=== PATIENT | male | born 2005 | race Two or more races ===

== ENCOUNTER 2024-09-17 13:37 | Emergency (ER) | payer MEDICAID, OTHER ==
[~2024-09-17] VITALS: Ht 175.3 cm; Wt 72.7 kg
[2024-09-17] MEDS: MORPHINE SULFATE 4 MG/ML SYR/VIAL IV ONE (13:45)
[2024-09-17 13:55] VITALS: PULSE 89; RESP 16; O2SAT 95
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
[2024-09-17] MEDS: ONDANSETRON HCL 4 MG/2 ML VIAL IV ONE ×3 (14:10→15:51)
[2024-09-17 14:17] LABS: Basophils # (auto) 0.2 10 ^3/uL (0-0.2); Basophils % (auto) 0.9 % (0.0-2.0); Eosinophils # (auto) 0.1 10 ^3/uL (0-0.8); Eosinophils % (auto) 0.8 % (0.0-7.0); Hematocrit 45.8 % (41.0-53.0); Hemoglobin 15.8 g/dL (13.5-17.5); Lymphocytes # (auto) 2.5 10 ^3/uL (0.4-5.4); Lymphocytes % (auto) 14.8 % (10.0-50.0); Mean Corpuscular Hemoglobin 31.3 pg (28.0-32.0); Mean Corpuscular Hgb Conc. 34.5 g/dL (32.0-36.0); Mean Corpuscular Volume 90.6 fL (80.0-100.0); Monocytes # (auto) 0.9 10 ^3/uL (0-1.3); Monocytes % (auto) 5.5 % (0.0-12.0); Neutrophils # (auto) 13.2 10 ^3/uL (1.6-8.6); Nucleated Red Blood Cells % 0.1 %; Platelet Count (auto) 219 10^3/uL (140-450); Red Blood Cells 5.05 10^6/uL (4.5-5.90); Red Cell Distribution Width 13.3 % (11.8-14.3); White Blood Cell 16.9 10^3/uL (4.4-10.8)
[2024-09-17 14:33] LABS: Chloride 104 mmol/L (98-107); Potassium 3.8 mmol/L (3.5-5.1); Sodium 138 mmol/L (136-145)
[2024-09-17 14:34] LABS: Anion Gap 12 (5-15); Calcium 10.1 mg/dL (8.7-10.4); Carbon Dioxide 22 mmol/L (20-31)
--- NOTE | 2024-09-17 14:38 | DVH ---
EXAM: CT HEAD WITHOUT CONTRAST INDICATION: trauma loc TECHNIQUE: CT of the head without intravenous contrast. Radiation Dose : 1. Head: CT Dose: CTDI volume is 63 mGy. Dose-length product is 1144 mGy*cm The dose indicators for CT are the volume Computed Tomography (CT) Dose Index (CTDIvol) and the Dose Length Product (DLP), and are measured in units of mGy and mGy-cm, respectively. These indicators are not patient dose, but values generated from the CT scanner acquisition factors. The report includes radiation exposure data for exposures received during this examination. COMPARISON: None FINDINGS: There is no evidence of acute intracranial hemorrhage, extra-axial collection, mass effect, midline s hift, herniation or hydrocephalus. The ventricles, sulci and cisterns are age appropriate. The aragon-white differentiation is intact. Patchy periventricular and subcortical white matter hypoattenuation is nonspecific but may be related to small vessel ischemic disease. Moderate right-sided sphenoid sinusitis. The surrounding soft tissues and osseous structures are unremarkable. IMPRESSION: 1. No acute intracranial abnormality. Radiation optimization: All CT scans at this facility use at least one of these dose optimization aurea hniques: automated exposure control mA and/or kV adjustment per patient size (includes targeted exam s where dose is matched to clinical indication) or iterative reconstruction.
[2024-09-17 14:39] LABS: BUN/Creatinine Ratio 13.7 (10.0-20.0); Blood Urea Nitrogen 14 mg/dL (9-23)
[2024-09-17] MEDS: SODIUM CHLORIDE 0.9% 1,000 ML IV ONE (14:41)
[2024-09-17 14:46] LABS: Glucose 165 mg/dL (74-106)
--- NOTE | 2024-09-17 14:48 | DVH ---
HISTORY: trauma TECHNIQUE: Nonenhanced axial images through the facial bones with coronal and sagittal MPR. Radiation Dose Information: CT Dose: CTDI volume is 66.97 mGy. Dose-length product is 1380.37 mGy*cm COMPARISON: None FINDINGS: Mandible: Unremarkable Maxilla: Unremarkable Zygomatic arches: Unremarkable Nasal bone: Unremarkable Orbits: Unremarkable Sinuses: Partial opacification in the right sphenoid sinus which does not appear dense enough to cardozo ggest blood products. Otherwise mild scattered mucosal thickening in the paranasal sinuses. Facial swelling: Soft tissue swelling overlying the right zygomatic arch. No evidence of subcutaneou s gas or radiopaque foreign bodies. Other: Soft tissue density in the bilateral external auditory canals could represent cerumen impactio n or ear plugs. IMPRESSION: 1. No acute facial fractures. 2. Right facial soft tissue swelling. 3. Right sphenoid sinus disease. Correlate for possible sinusitis. Radiation optimization: All CT scans at this facility use at least one of these dose optimization aurea hniques: automated exposure control mA and/or kV adjustment per patient size (includes targeted exam s where dose is matched to clinical indication) or iterative reconstruction.
--- NOTE | 2024-09-17 14:48 | DVH ---
EXAM: CT CERVICAL WITHOUT CONTRAST INDICATION: trauma EXAM DATE: 09/17/2024 02:11 PM COMPARISON: None TECHNIQUE: Multiple axial CT images of the cervical spine were obtained using bone algorithm. Axial a nd coronal reformatting was done. Bone and soft tissue windows were reviewed. Radiation Dose Information: CT Dose: CTDI volume is 24.61 mGy. Dose-length product is 688.69 mGy*cm Findings: There is no evidence of an acute fracture or spondylolisthesis. The vertebral body heights are well-m aintained. The craniocervical junction and dens are intact. No evidence of degenerative disc disease. No neuroforaminal narrowing. No spinal canal stenosis. There is a normal cervical lordosis. The thyroid gland is unremarkable. The lung apices demonstrate no acute abnormality. The paraspinal a nd neck soft tissues appear within normal limits. C2-3: Normal C3-4: Normal C4-5: Normal C5-6: Normal C6-7: Normal C7-T1: Normal Impression: 1. No evidence of an acute fracture.
--- NOTE | 2024-09-17 14:54 | DVH ---
EXAM: CT PELVIS WO CONTRAST INDICATION: trauma EXAM DATE: 09/17/2024 02:13 PM COMPARISON: None TECHNIQUE: Multiple axial CT images of the pelvis were obtained using bone algorithm. Axial and coron al reformatting was done. Bone and soft tissue windows were reviewed. Radiation Dose Information: CT Dose: CTDI volume is 9.55 mGy. Dose-length product is 290.99 mGy*cm Findings: Lack of intravenous contrast limits evaluation of solid organs and vasculature. No evidence of an acute fracture, dislocation, blastic, lytic, or osseous destructive lesions. No sup erficial soft tissue abnormalities. The urinary bladder is well-distended and unremarkable. The distal ureters, prostate and seminal vesi cles are unremarkable. No dilatation of the visualized portion of the bowel. No intraluminal free air or free fluid. Impression: 1. No evidence of an acute fracture.
--- NOTE | 2024-09-17 14:57 | DVH ---
CLINICAL INDICATION: trauma TECHNIQUE: XY R FEMUR XRAY Comparison: None FINDINGS/IMPRESSION: : There is no evidence of acute fracture or dislocation. Soft tissues are unremarkable.
--- NOTE | 2024-09-17 14:58 | DVH ---
CLINICAL INDICATION: trauma TECHNIQUE: XY R KNEE 3V XRAY Comparison: None FINDINGS/IMPRESSION: : There is no evidence of acute fracture or dislocation. Soft tissues are unremarkable.
[2024-09-17] MEDS: TETANUS-DIPTH-ACEL PERTUSSIS 0.5ML SYR Tdap IM ONE (14:59)
--- NOTE | 2024-09-17 15:03 | DVH ---
CLINICAL INDICATION: trauma TECHNIQUE: 3-view right XY R ANKLE 3 VIEW Comparison: None FINDINGS/IMPRESSION: : There is no evidence of acute fracture or dislocation. Soft tissues are unremarkable.
--- NOTE | 2024-09-17 15:08 | DVH ---
EXAM: XR Right Hand Complete, 3 or More Views CLINICAL INDICATION: trauma TECHNIQUE: Frontal, lateral and oblique views of the right hand. COMPARISON: None FINDINGS: BONES/JOINTS: See below. SOFT TISSUES: Soft tissue swelling without acute fracture. No radiopaque foreign body. OTHER FINDINGS: . IMPRESSION: 1. Soft tissue swelling without acute fracture. 2. If symptoms persist, further evaluation with CT is recommended.
[2024-09-17 16:42] LABS: Urine Bacteria None Seen /hpf (None Seen)
[2024-09-17 16:49] LABS: Urine Blood 1+ /uL (Negative); Urine Clarity Clear (Clear); Urine Color Yellow (Yellow); Urine Mucus FEW (None Seen); Urine Protein, UAD TRACE (Negative); Urine Specific Gravity 1.023 (1.001-1.035); Urine Squamous Epithelial Cell None Seen /hpf (<5); Urine Urobilinogen Normal (Negative); Urine WBC 3 /HPF (0-3); Urine pH 7.5 (5.0-9.0)
[2024-09-17 17:52] VITALS: BP 118/77; PULSE 102; RESP 16; TEMP 98.7; O2SAT 98
== END 2024-09-17 18:21 | disposition short-term general hospital (02) ==
LOC: ER 13:37
DX: S06.9X9A Unspecified intracranial injury with loss of consciousness of unspecified duration, initial encounter (principal); F07.81 Postconcussional syndrome; R22.43 Localized swelling, mass and lump, lower limb, bilateral; R22.31 Localized swelling, mass and lump, right upper limb; W22.09XA Striking against other stationary object, initial encounter; Y93.89 Activity, other specified; Y92.89 Other specified places as the place of occurrence of the external cause; Y99.8 Other external cause status
CPT/HCPCS: 36415; 70450; 70486; 72125; 72192; 73130; 73552; 73562; 73610; 80048; 81001; 85025; 90471; 90715; 96361; 96374; 96376; 99285; J2405; J7030